=== PATIENT | female | born 1955 | race Caucasian/White ===

== ENCOUNTER 2016-09-21 10:56 | Day surgery (SDC) | payer OTHER ==
[2016-09-21 09:17] VITALS: BMI 19.9
[2016-09-21] MEDS ORDERED: PROPOFOL 20 ML ONE (11:32)
[2016-09-21 12:40] VITALS: PULSE 70
[2016-09-21 12:41] VITALS: BP 117/60; TEMP 98
== END 2016-09-21 12:50 | disposition home or self-care (01) ==
LOC: FASU-ENDO 10:56
PROVIDERS: ATTEND Internal Medicine Gastroenterology
PROC: 0DJD8ZZ Inspection of Lower Intestinal Tract, Via Natural or Artificial Opening Endoscopic (ICD-10-PCS; principal; 2016-09-21 11:52)
DX: Z12.11 Encounter for screening for malignant neoplasm of colon (principal); Z83.71 Family history of colonic polyps

== ENCOUNTER 2017-08-24 20:58 | Emergency (ER) | payer OTHER ==
[2017-08-24 21:16] VITALS: BP 125/83; PULSE 78; TEMP 98.2; BMI 20.2
--- NOTE | 2017-08-24 21:16 | PDOC ---
History of Present Illness - General History Source: Patient Exam Limitations: No Limitations - History of Present Illness Initial Comments: 08/24/17 21:34 A portion of this note was documented by scribe services under my direction. I have reviewed the details of the note, within reason, and agree with the documentation. The case summary and management plan written by me. Assessment and plan: This is a 61-year-old female with superficial laceration to her left forearm secondary to a dog bite. The dog is known to the patient it is the patient's dog and it's immunizations are up-to-date and the dog is otherwise healthy. Laceration was cleaned and bacitracin applied and a Band-Aid patient started on Augmentin to prevent infection and discharged home. <Milady Camarillo I - Last Filed: 08/24/17 21:34> - General History Source: Patient Exam Limitations: No Limitations - History of Present Illness Initial Comments: The patient is a 61 year old female who presents to the emergency department for evaluation of left forearm dog bite. The patient reports mild left forearm pain after being bit by her dog this evening. She reports being bit by her dog after trying to grab and separate her dog from her neighbors dog. The patient reports her dogs immunizations are up to date. The patient states her last tetanus shot was 8 years ago. The patient denies chest pain, shortness of breath, headache, and dizziness. Denies fevers, chills, nausea, vomiting, and any bowel/urinary symptoms. Denies any other kinds of injury. PAST MEDICAL HISTORY: no significant history PAST SURGICAL HISTORY: no significant history FAMILY HISTORY: no pertinent history SOCIAL HISTORY: Pt lives with family and is employed. MEDICATIONS: reviewed ALLERGIES: As per nursing notes General: No fevers or chills, no weakness, no weight loss HEENT: No change in vision. No sore throat,. No ear pain Cardiovascular: No chest pain or shortness of breath Respiratory:No cough, or wheezing. Gastrointestinal: no nausea, vomiting, diarrhea or constipation, No rectal bleeding Genitourinary: No dysuria, hematuria, or frequency Musculoskeletal: (+)Left forearm pain. (+)Left forearm bite. Neurologic: No headache, vertigo, dizziness or loss of consciousness Psychiatric: nor depression Skin: No rashes or easy bruising Endocrine: no increased thirst or abnormal weight change Allergic: no skin or latex allergy All other systems reviewed and normal GENERAL: The patient is awake, alert, and fully oriented, in no acute distress. HEAD: Normal with no signs of trauma. EYES: Pupils equal, round and reactive to light, extraocular movements intact, sclera anicteric, conjunctiva clear. EXTREMITIES: (+)left forearm palmar side approx 0.5cm puncture wound, no active bleeding, with associated contusion to the surrounding tissue. Neurovasculars intact. NEUROLOGICAL: Normal speech, normal gait. PSYCH: Normal mood, normal affect. SKIN: Warm, Dry, normal turgor, no rashes or lesions noted. <Rosemarie De La Cruz - Last Filed: 08/24/17 21:53> - General Chief Complaint: Bite Stated Complaint: DOG BITE Time Seen by Provider: 08/24/17 21:05 Past History - Past Medical History Anemia: No Asthma: No Cancer: No Cardiac Disorders: Yes (MVP) CVA: No COPD: No CHF: No Dementia: No Diabetes: No GI Disorders: No Disorders: No HTN: No Hypercholesterolemia: No Liver Disease: No Seizures: No Thyroid Disease: No - Surgical History Abdominal Surgery: No Appendectomy: No Cardiac Surgery: No Cholecystectomy: No Lung Surgery: No Neurologic Surgery: No Orthopedic Surgery: No - Suicide/Smoking/Psychosocial Hx Smoking History: Never smoked Have you smoked in the past 12 months: No Information on smoking cessation initiated: No Hx Alcohol Use: Yes (OCCAS) Drug/Substance Use Hx: No Substance Use Type: Alcohol Hx Substance Use Treatment: No <Milady Camarillo I - Last Filed: 08/24/17 21:34> <Rosemarie De La Cruz - Last Filed: 08/24/17 21:53> - Past Medical History Allergies/Adverse Reactions: Allergies Allergy/AdvReac Type Severity Reaction Status Date / Time No Known Allergies Allergy Verified 08/24/17 21:01 Home Medications: Ambulatory Orders Amoxicillin/Potassium Clav [Augmentin 500-125 Tablet] 1 each PO BID #10 tablet 08/24/17 *Physical Exam - Vital Signs Last Vital Signs Temp Pulse Resp BP Pulse Ox 98.2 F 78 16 125/83 99 08/24/17 21:02 08/24/17 21:02 08/24/17 21:02 08/24/17 21:02 08/24/17 21:02 <Milady Camarillo I - Last Filed: 08/24/17 21:34> - Vital Signs Last Vital Signs Temp Pulse Resp BP Pulse Ox 98.2 F 78 16 125/83 99 08/24/17 21:02 08/24/17 21:02 08/24/17 21:02 08/24/17 21:02 08/24/17 21:02 <Rosemarie De La Cruz - Last Filed: 08/24/17 21:53> *DC/Admit/Observation/Transfer <Milady Camarillo I - Last Filed: 08/24/17 21:34> - Attestations Scribe Attestion: Documentation prepared by Rosemarie De La Cruz, acting as medical records custodian for Milady Camarillo MD. <Rosemarie De La Cruz - Last Filed: 08/24/17 21:53> Diagnosis at time of Disposition: Dog bite Qualifiers: Encounter type: initial encounter Qualified Code(s): W54.0XXA - Bitten by dog, initial encounter - Discharge Dispostion Disposition: HOME Condition at time of disposition: Stable - Prescriptions Prescriptions: Amoxicillin/Potassium Clav [Augmentin 500-125 Tablet] 1 each PO BID #10 tablet - Patient Instructions Additional Instructions: Take Augmentin one tablet twice a day for 5 days. Tylenol or Motrin as needed for pain. Clean the laceration once a day and reapply bacitracin and a Band-Aid until it is healed. Return to the emergency department immediately with ANY new, persistent or worsening symptoms. Continue any medications as previously prescribed by your physician. You should follow up with your primary doctor as soon as possible regarding today's emergency department visit. . Please make sure your doctor reviews the results of your emergency evaluation. Thank you for coming to the Emergency Department today for your care. It was a pleasure to see you today. Please note that your evaluation is INCOMPLETE until you follow-up with your doctor.
[2017-08-24] MEDS ORDERED: AMOX TR/POT CLAV 500MG/125MG TABLETS (FP) PO ONE (21:33)
[2017-08-24] MEDS ORDERED: AMOX TR/POT CLAV 500MG/125MG TABLETS (FP) ONE (22:07)
== END 2017-08-24 22:09 | disposition home or self-care (01) ==
LOC: FER 20:58
DX: S51.812A Laceration without foreign body of left forearm, initial encounter (principal)
CPT/HCPCS: 99281-25

== ENCOUNTER 2023-03-10 07:33 | Day surgery (SDC) | payer OTHER, MEDICARE ==
[2023-03-09 10:20] VITALS: BMI 19.7
[2023-03-10] MEDS ORDERED: LIDOCAINE HCL/PF 2% SDV 5ML VIAL ONE (08:15)
[2023-03-10] MEDS ORDERED: PROPOFOL 40 ML ONE (08:15)
[2023-03-10 09:13] VITALS: BP 105/60; PULSE 49; RESP 18; TEMP 96.9
== END 2023-03-10 09:26 | disposition home or self-care (01) ==
LOC: FASU-ENDO 07:33
PROVIDERS: ATTEND Internal Medicine Gastroenterology
PROC: 0DJD8ZZ Inspection of Lower Intestinal Tract, Via Natural or Artificial Opening Endoscopic (ICD-10-PCS; principal; 2023-03-10 08:22)
DX: Z12.11 Encounter for screening for malignant neoplasm of colon (principal); Z83.719 Family history of colon polyps, unspecified